=== PATIENT | male | born 1940 | race Caucasian/White ===

== ENCOUNTER 2017-01-07 21:42 | Emergency (ER) | payer MEDICARE, OTHER ==
[2017-01-07 21:55] VITALS: BP 133/76
--- NOTE | 2017-01-07 21:57 | EDM.PDOC ---
ED HPI ENT - General Chief Complaint: ENT Problem Stated Complaint: BLOODY NOSE,CAUTERIZED ON WED Time Seen by Provider: 01/07/17 21:55 Source of Information: Reports: Patient History Limitations: Reports: No limitations - History of Present Illness INITIAL COMMENTS - FREE TEXT/NARRATIVE: recurrent nose bleed. had cautery 2 days ago, was Ok till today bleeding on off then [employer] got worse. - Related Data Allergies/ADRs: Allergies Allergy/AdvReac Type Severity Reaction Status Date / Time copper Allergy Cannot Verified 01/07/17 21:53 Remember Iodinated Contrast Media - Allergy Itching Verified 01/07/17 21:53 Oral and [Iodinated Contrast Media - IV Dye] Home Meds: Home Meds Metoprolol Tartrate 12.5 mg PO BID 12/11/14 [History] amLODIPine [Norvasc] 5 mg PO DAILY 12/11/14 [History] Acetaminophen [Tylenol Extra Strength] 500 mg PO BID PRN 07/22/16 [History] Acetaminophen/Diphenhydramine [Tylenol Pm Ex-Strength Caplet] 1 tab PO DAILY PRN 07/22/16 [History] Aspirin 81 mg PO BRK 07/22/16 [History] Clopidogrel [Plavix] 75 mg PO DAILY 07/22/16 [History] Famotidine [Pepcid] 20 mg PO DAILY PRN 07/22/16 [History] Naproxen Sodium [Aleve] 220 mg PO DAILY PRN 07/22/16 [History] Nitroglycerin [Nitrostat] 0.4 mg SL Q5M PRN 07/22/16 [History] Simvastatin [Zocor] 20 mg PO BEDTIME 07/22/16 [History] Pantoprazole [ProTONIX] 40 mg PO ACBREAKFAST #30 tab.cr 07/23/16 [Rx] Past Medical History HEENT History: Reports: Hard of hearing, Impaired vision Cardiovascular History: Reports: CAD, High cholesterol, Hypertension Gastrointestinal History: Reports: Irritable bowel syndrome, Other (see below) Other Gastrointestinal History: lactose intolerance; anal fistula Genitourinary History: Reports: BPH Musculoskeletal History: Reports: None Neurological History: Reports: None Psychiatric History: Reports: Anxiety Endocrine/Metabolic History: Reports: Other (see below) Other Endocrine/Metabolic History: hyperglycemia Hematologic History: Reports: Anemia Immunologic History: Reports: None Oncologic (Cancer) History: Reports: None Dermatologic History: Reports: Eczema - Infectious Disease History Infectious Disease History: Reports: Chicken pox - Past Surgical History HEENT Surgical History: Reports: Adenoidectomy, Tonsillectomy Cardiovascular Surgical History: Reports: Other (see below) Other Cardiovascular Surgeries/Procedures: Cardiac cath 2013Left Circumflex stent placed 07/20/16 GI Surgical History: Reports: Colonoscopy, EGD, Other (see below) Other GI Surgeries/Procedures: Closure of Anal Fistula Endocrine Surgical History: Reports: None Social & Family History - Family History Family Medical History: Noncontributory Cardiac: Reports: CAD - Tobacco Use Smoking Status *Q: Never Smoker Used Tobacco, but Quit: Yes Month Tobacco Last Used: 09/22/1983 Second Hand Smoke Exposure: No - Caffeine Use Caffeine Use: Reports: Coffee - Alcohol Use Days Per Week of Alcohol Use: 7 Number of Drinks Per Day: 1 Total Drinks Per Week: 7 - Recreational Drug Use Recreational Drug Use: No ED ROS ENT - Review of Systems Review Of Systems: ROS reveals no pertinent complaints other than HPI. ED EXAM, ENT - Physical Exam Exam: See Below Exam Limited By: No limitations General Appearance: alert, WD/WN, mild distress, other (distraught) Ears: hearing grossly normal Nose: active bleeding, other (right hasslebach) Mouth/Throat: Normal inspection Head: atraumatic Neck: non-tender, full range of motion Respiratory/Chest: no respiratory distress Cardiovascular: regular rate, rhythm GI/Abdominal: soft, non tender Neurological: alert, oriented, normal cognition, normal gait, no motor/sensory deficits Psychiatric: anxious Skin: Warm, Dry Lymphatic: no adenopathy Course - Vital Signs Last Recorded V/S: Last Vital Signs Temp 36.7 C 01/07/17 21:48 Pulse 74 01/07/17 21:55 Resp 18 01/07/17 21:55 BP 133/76 01/07/17 21:55 Pulse Ox 95 01/07/17 21:55 - Orders/Labs/Meds Labs: Laboratory Tests 01/07/17 01/07/17 01/07/17 Range/Units 22:10 22:10 22:10 WBC 7.7 (5.0-10.0) 10^3/uL RBC 4.84 (4.6-6.2) 10^6/uL Hgb 14.9 (14.0-18.0) g/dL Hct 43.4 (40.0-54.0) % MCV 89.7 (80-100) fL MCH 30.8 (27.0-34.0) pg MCHC 34.3 (33.0-35.0) g/dL Plt Count 204 (150-450) 10^3/uL Neut % (Auto) 72.2 (42.2-75.2) % Lymph % (Auto) 13.1 L (20.5-50.1) % [place] % (Auto) 11.8 H (2-8) % Eos % (Auto) 2.1 (1.0-3.0) % Baso % (Auto) 0.8 (0.0-1.0) % PT 10.4 (9.0-12.0) SEC INR 1.0 (0.9-1.2) APTT 26.0 (22.0-34.0) SEC Sodium 140 (135-145) mmol/L Potassium 3.4 L (3.6-5.0) mmol/L Chloride 106 (101-111) mmol/L Carbon Dioxide 24.0 (21.0-31.0) mmol/L Anion Gap 13.4 BUN 18 (7-18) mg/dL Creatinine 0.8 (0.6-1.3) mg/dL Est Cr Clr Drug Dosing 81.01 mL/min Estimated GFR (MDRD) > 60 BUN/Creatinine Ratio 22.50 Glucose 119 H (74-105) mg/dL Calcium 9.1 (8.4-10.2) mg/dl Total Bilirubin 0.8 (0.2-1.0) mg/dL AST 29 (10-42) IU/L ALT 23 (10-60) IU/L Alkaline Phosphatase 91 (42-121) IU/L Total Protein 7.1 (6.7-8.2) g/dl Albumin 4.1 (3.2-5.5) g/dl Globulin 3.0 Albumin/Globulin Ratio 1.37 - Re-Assessments/Exams Free Text/Narrative Re-Assessment/Exam: 01/07/17 22:47 re-exam: repacking done, now bilateral 01/08/17 00:14 further eval' Pt states can still feel blood trickling down back of throat. orophayrnx unable to viz blood. case discussed with Dr Talley @ [facility] who kindly accepted Pt. Departure - Departure Time of Disposition: 00:17 Disposition: DC/Tfer to Acute Hospital 02 Condition: good Clinical Impression: Epistaxis Forms: Interfacility Transfer EMTALA
[2017-01-07 22:34] LABS: CHLORIDE,CL 106 mmol/L (101-111); SODIUM,NA 140 mmol/L (135-145)
== END 2017-01-08 00:45 ==
LOC: DL.ED 21:42
DX: R04.0 Epistaxis (principal); I25.10 Atherosclerotic heart disease of native coronary artery without angina pectoris; E78.00 Pure hypercholesterolemia, unspecified; I10 Essential (primary) hypertension; F41.9 Anxiety disorder, unspecified; Z79.82 Long term (current) use of aspirin; Z79.899 Other long term (current) drug therapy; Z86.2 Personal history of diseases of the blood and blood-forming organs and certain disorders involving the immune mechanism; Z98.890 Other specified postprocedural states; Z91.041 Radiographic dye allergy status
CPT/HCPCS: 36415; 80053; 85025; 85610; 85730; 99283; 99284

== ENCOUNTER 2017-08-09 06:19 | Day surgery (SDC) | payer MEDICARE, OTHER ==
[~2017-08-09 06:19] MED LIST: Dextrose 5%-0.45% NaCl 1,000 ML IV SCH; Midazolam 1 MG/ML 2 ML SDV ONE; Sodium Chloride 0.9% 10 ML Syringe FLUSH PRN; fentaNYL 100 MCG/2 ML SDV ONE
[2017-08-09] MEDS ORDERED: Midazolam 1 MG/ML 2 ML SDV IV ONE ×7 (06:20→07:39)
[2017-08-09] MEDS ORDERED: fentaNYL 100 MCG/2 ML SDV IV ONE ×4 (06:20→07:41)
[2017-08-09 12:31] VITALS: BP 121/52
--- NOTE | 2017-08-09 12:39 | OR ---
DATE: 08/09/2017 PROCEDURE: Total colonoscopy and multiple pinch biopsies. INSTRUMENT USED: CF-H180AL Olympus video colonoscope. PREMEDICATIONS: Fentanyl 125 mcg intravenous, Versed 4 mg intravenous. Nasal O2 cannula. The procedure was done under pulse oximetry, BP recording, and cardiac nurse specialist. INDICATION: The patient with chronic diarrhea, unexplained, and not responsive to medical measures. Colonoscopic examination is done for detection of any polypoid lesions and removal, biopsies to be obtained for microscopic colitis, endoscopic hemostasis therapy if needed. Initial rectal exam was unremarkable. Rigid anoscopy showed small internal hemorrhoids without bleeding from them. DESCRIPTION OF PROCEDURE: The colonoscope was passed with ease. Numerous scattered diverticula were noted in the distal left colon along with deformity. The scope was passed with ease up to the ileocecal area, photographs were taken of the normal-appearing cecum, identified by landmarks of appendiceal orifice and double-bulged ileocecal folds. No bleeding was noted from any of the visualized areas at the commencement of the examination. No stricture. No vascular ectasia. No large isolated ulcerations seen. No evidence of diffuse inflammatory bowel disease in the form of friability, contact bleeding, or ulcerations. No polyp or tumor mass identified. Probing the proximal sides of folds and flexures, using adequate distention and clearing up the stool material, withdrawal of the scope was made. Multiple pinch biopsies were taken from the normal-appearing mucosa of the mid transverse colon, mid descending colon, and rectosigmoid, and sent for any histopathologic evidence of microscopic colitis. No bleeding was noted from any of the visualized areas at the completion of examination. IMPRESSION: 1. Internal hemorrhoids. 2. Diverticulosis. The patient tolerated the procedure well. [facility] /[id number]
== END 2017-08-09 10:05 | disposition home or self-care (01) ==
LOC: DL.ENDO 06:19
PROVIDERS: ATTEND Internal Medicine Gastroenterology
DX: K57.30 Diverticulosis of large intestine without perforation or abscess without bleeding (principal); K64.8 Other hemorrhoids; I25.10 Atherosclerotic heart disease of native coronary artery without angina pectoris; E66.9 Obesity, unspecified; I10 Essential (primary) hypertension; E78.00 Pure hypercholesterolemia, unspecified; Z91.041 Radiographic dye allergy status; Z91.048 Other nonmedicinal substance allergy status
CPT/HCPCS: 45380; J2250; J3010; J7042; 88305

== ENCOUNTER 2020-02-21 21:54 | Emergency (ER) | payer MEDICARE ==
[2020-02-21 23:08] VITALS: BP 126/71; PULSE 73
[2020-02-21] MEDS ORDERED: Doxycycline 100 MG Cap PO ONE (23:23)
--- NOTE | 2020-02-21 23:28 | EDM.PDOC ---
ED HPI GENERAL MEDICAL PROBLEM - General Chief Complaint: Bite:Animal, Insect Stated Complaint: imbedded woodtick Time Seen by Provider: 02/21/20 23:10 Source of Information: Reports: Patient, Other History Limitations: Reports: No Limitations - History of Present Illness INITIAL COMMENTS - FREE TEXT/NARRATIVE: think wood tike bite to left axilla noticed red swollen area tonight, picked something off earlier but not sure if woodtick or what, though saw something that had legs. no fever or chills but area has small ring. - Related Data Allergies Allergy/AdvReac Type Severity Reaction Status Date / Time copper Allergy Cannot Verified 02/21/20 23:08 Remember Iodinated Contrast Media Allergy Itching Verified 02/21/20 23:08 [Iodinated Contrast Media - IV Dye] Home Meds: Home Meds Metoprolol Tartrate 12.5 mg PO BID 12/11/14 [History] amLODIPine [Norvasc] 5 mg PO DAILY 12/11/14 [History] Aspirin 81 mg PO BRK 07/22/16 [History] Nitroglycerin [Nitrostat] 0.4 mg SL Q5M PRN 07/22/16 [History] Omeprazole 20 mg PO DAILY 08/08/17 [History] Rosuvastatin [Crestor] 10 mg PO BEDTIME 08/08/17 [History] Acetaminophen 500 mg PO Q6HR PRN 09/18/18 [History] Past Medical History HEENT History: Reports: Hard of Hearing, Impaired Vision Cardiovascular History: Reports: CAD, High Cholesterol, Hypertension Gastrointestinal History: Reports: GERD, Hemorrhoids, Irritable Bowel Syndrome, Other (See Below) Other Gastrointestinal History: lactose intolerance; anal fistula Genitourinary History: Reports: BPH Musculoskeletal History: Reports: None Neurological History: Reports: None Psychiatric History: Reports: Anxiety Endocrine/Metabolic History: Reports: Other (See Below) Other Endocrine/Metabolic History: hyperglycemia Hematologic History: Reports: Anemia Immunologic History: Reports: None Oncologic (Cancer) History: Reports: None Dermatologic History: Reports: Eczema - Infectious Disease History Infectious Disease History: Reports: Chicken Pox, Measles, Mumps - Past Surgical History Head Surgeries/Procedures: Reports: None HEENT Surgical History: Reports: Adenoidectomy, Tonsillectomy Other HEENT Surgeries/Procedures: joint problem in neck Cardiovascular Surgical History: Reports: Coronary Artery Stent, Other (See Below) Other Cardiovascular Surgeries/Procedures: Cardiac cath 2013Left Circumflex stent placed 07/20/16 GI Surgical History: Reports: Colonoscopy, EGD, Other (See Below) Other GI Surgeries/Procedures: Closure of Anal Fistula Endocrine Surgical History: Reports: None Social & Family History - Family History Family Medical History: Noncontributory Cardiac: Reports: CAD - Tobacco Use Smoking Status *Q: Never Smoker Second Hand Smoke Exposure: No - Caffeine Use Caffeine Use: Reports: None Caffeine Use Comment: 24oz - Recreational Drug Use Recreational Drug Use: No ED ROS GENERAL - Review of Systems Review Of Systems: Comprehensive ROS is negative, except as noted in HPI. ED EXAM, ANIMAL BITE - Physical Exam Exam: See Below Exam Limited By: No Limitations General Appearance: Alert, No Apparent Distress Eye Exam: Bilateral Eye: EOMI Ears: Normal External Exam Throat/Mouth: Normal Inspection Head: Atraumatic, Normocephalic Neck: Normal Inspection Respiratory/Chest: No Respiratory Distress, Lungs Clear, Normal Breath Sounds, Chest Non-Tender Cardiovascular: Normal Peripheral Pulses, Regular Rate, Rhythm Extremities: Normal Inspection Neurological: Alert, Oriented Psychiatric: Normal Affect Skin Exam: Other (left mid axilla 4mm black crusted lesion with 2mm surrounding red border, mild tenderness, no surrounding lymphadenopathy) Course - Vital Signs Last Recorded V/S: Last Vital Signs Temp 98.6 F 02/21/20 23:05 Pulse 73 02/21/20 23:05 Resp 18 02/21/20 23:05 BP 126/71 02/21/20 23:05 Pulse Ox 100 02/21/20 23:05 - Orders/Labs/Meds Meds: Medications Discontinued Medications Generic Name Dose Route Start Last Admin Trade Name Adrianne PRN Reason Stop Dose Admin Doxycycline Hyclate 100 mg 02/21/20 23:23 02/21/20 23:40 Vibramycin PO 02/21/20 23:24 100 mg ONETIME ONE Administration Departure - Departure Time of Disposition: 23:25 Disposition: Home, Self-Care 01 Condition: Good Clinical Impression: Tick bite Qualifiers: Encounter type: initial encounter Qualified Code(s): W57.XXXA - Bitten or stung by nonvenomous insect and other nonvenomous arthropods, initial encounter - Discharge Information *PRESCRIPTION DRUG MONITORING PROGRAM REVIEWED*: No *COPY OF PRESCRIPTION DRUG MONITORING REPORT IN PATIENT GUA[place]KITO: No Instructions: Tick Bite Information, Adult Forms: ED Department Discharge Additional Instructions: warm pack area 2-3 times daily for 15 minutes tylenol 650mg every 4 hours as needed for discomfort doxycycline 100mg one twice daily for 10 days clinic follow up if not improving Sepsis Event Note (ED) - Evaluation Sepsis Screening Result: No Definite Risk
== END 2020-02-21 23:41 | disposition home or self-care (01) ==
LOC: DL.ED 21:54
DX: S40.862A Insect bite (nonvenomous) of left upper arm, initial encounter (principal); I25.10 Atherosclerotic heart disease of native coronary artery without angina pectoris; E78.00 Pure hypercholesterolemia, unspecified; I10 Essential (primary) hypertension; K21.9 Gastro-esophageal reflux disease without esophagitis; Z91.09 Other allergy status, other than to drugs and biological substances; Z91.041 Radiographic dye allergy status; Z79.82 Long term (current) use of aspirin; Z79.899 Other long term (current) drug therapy; W57.XXXA Bitten or stung by nonvenomous insect and other nonvenomous arthropods, initial encounter
CPT/HCPCS: 99281; A9270; 99283

== ENCOUNTER 2022-04-17 13:37 | Emergency (ER) | payer MEDICARE | END 2022-04-17 14:06 | disposition left against medical advice (07) | LOC: DL.ED 13:37 | DX: Z53.21 Procedure and treatment not carried out due to patient leaving prior to being seen by health care provider (principal) ==

== ENCOUNTER 2022-08-29 10:59 | Emergency (ER) | payer MEDICARE, OTHER ==
[2022-08-29 12:31] VITALS: BP 133/81; PULSE 94
[2022-08-29 12:40] LABS: ANION GAP 14.9 mEq/L (7-13)
[2022-08-29 13:03] LABS: CORONAVIRUS COVID-19 NAA NEGATIVE (NEGATIVE); RESPIRATORY SYNCYTIAL VIR NAA POSITIVE (NEGATIVE)
== END 2022-08-29 14:24 | disposition home or self-care (01) ==
LOC: DL.ED 10:59
DX: R05.9 Cough, unspecified (principal); B97.4 Respiratory syncytial virus as the cause of diseases classified elsewhere; I25.10 Atherosclerotic heart disease of native coronary artery without angina pectoris; E78.00 Pure hypercholesterolemia, unspecified; I10 Essential (primary) hypertension; Z91.041 Radiographic dye allergy status; Z91.048 Other nonmedicinal substance allergy status; Z79.899 Other long term (current) drug therapy; Z79.82 Long term (current) use of aspirin; Z20.822 Contact with and (suspected) exposure to COVID-19
CPT/HCPCS: 0241U; 36415; 71045; 80053; 83605; 85025; 87081; 87430; 99284

== ENCOUNTER 2024-02-02 12:26 | Emergency (ER) | payer MEDICARE, OTHER ==
[2024-02-02 12:48] LABS: BASOPHILS PERCENT AUTO 0.7 % (0.0-1.0); EOSINOPHILS PERCENT AUTO 3.7 % (1.0-3.0); HEMATOCRIT 45.5 % (40.0-54.0); HEMOGLOBIN 15.2 g/dL (14.0-18.0); LYMPHOCYTES PERCENT AUTO 12.6 % (20.5-50.1); MEAN CORPUSCULAR HEMOGLOBIN 31.5 pg (27.0-34.0); MEAN CORPUSCULAR HGB CONC 33.4 g/dL (33.0-35.0); MEAN CORPUSCULAR VOLUME 94.2 fL (80-100); PLATELET COUNT,PLT 211 10^3/uL (150-450); RED BLOOD CELL COUNT 4.83 10^6/uL (4.6-6.2); WHITE BLOOD CELL COUNT,WBC 6.7 10^3/uL (5.0-10.0)
[2024-02-02 13:03] VITALS: BP 140/80; PULSE 66
[2024-02-02] MEDS: Aspirin 81 MG Tab.Chew PO ONE (13:04)
[2024-02-02] MEDS: Sodium Chloride 0.9% 10 ML Syringe FLUSH PRN (13:04)
[2024-02-02 13:06] LABS: B-TYPE NATRIURETIC PEPTIDE,BNP 56 pg/ml (0-100)
[2024-02-02 13:11] LABS: A/G RATIO 1.1; ALANINE AMINOTRANSFERASE,ALT 28 U/L (16-63); ALBUMIN 3.6 g/dL (3.4-5.0); ALKALINE PHOSPHATASE 120 U/L (46-116); ANION GAP 12.9 mEq/L (7-13); ASPARTATE AMNIOTRANSFERASE,AST 19 U/L (15-37); BILIRUBIN TOTAL 0.7 mg/dL (0.2-1.0); BLOOD UREA NITROGEN,BUN 16 mg/dL (7-18); BUN/CREATININE RATIO 14.4 (No establ ref range); C-REACTIVE PROTEIN < 0.50 ng/dL (<=0.50); CALCIUM 8.6 mg/dL (8.5-10.1); CARBON DIOXIDE,CO2 26 mmol/L (21-32); CHLORIDE,CL 108 mmol/L (98-107); CREATININE 1.11 mg/dL (0.70-1.30); EST CRCL DRUG DOSING (CG) 51.31 mL/min; ESTIMATED GFR 66 mL/min (>=60); GLUCOSE RANDOM 102 mg/dL (70-99); POTASSIUM,K 3.9 mmol/L (3.5-5.1); SODIUM,NA 143 mmol/L (136-145)
== END 2024-02-02 15:23 | disposition home or self-care (01) ==
LOC: DL.ED 12:26
DX: R07.89 Other chest pain (principal); I10 Essential (primary) hypertension; E78.00 Pure hypercholesterolemia, unspecified; I25.10 Atherosclerotic heart disease of native coronary artery without angina pectoris; K21.9 Gastro-esophageal reflux disease without esophagitis; Z86.16 Personal history of COVID-19; Z95.5 Presence of coronary angioplasty implant and graft; Z79.899 Other long term (current) drug therapy; Z91.041 Radiographic dye allergy status; Z91.048 Other nonmedicinal substance allergy status
CPT/HCPCS: 36415; 71046; 80053; 83735; 83880; 84484; 85025; 85379; 85610; 86140; 93005; 99285; A9270; J3490

== ENCOUNTER 2024-08-31 11:08 | Emergency (ER) | payer MEDICARE ==
[2024-08-31] MEDS ORDERED: Sodium Chloride 0.9% 10 ML Syringe FLUSH PRN (12:05)
[2024-08-31 12:18] LABS: BASOPHILS PERCENT AUTO 0.4 % (0.0-1.0); EOSINOPHILS PERCENT AUTO 1.2 % (1.0-3.0); HEMATOCRIT 51.9 % (40.0-54.0); HEMOGLOBIN 17.5 g/dL (14.0-18.0); LYMPHOCYTES PERCENT AUTO 8.1 % (20.5-50.1); MEAN CORPUSCULAR HEMOGLOBIN 31.3 pg (27.0-34.0); MEAN CORPUSCULAR HGB CONC 33.7 g/dL (33.0-35.0); MEAN CORPUSCULAR VOLUME 92.8 fL (80-100); MONOCYTES PERCENT AUTO 11.1 % (2-8); NEUTROPHILS PERCENT AUTO 79.2 % (42.2-75.2); PLATELET COUNT,PLT 196 10^3/uL (150-450); RED BLOOD CELL COUNT 5.59 10^6/uL (4.6-6.2); WHITE BLOOD CELL COUNT,WBC 9.9 10^3/uL (5.0-10.0)
[2024-08-31] MEDS: Sodium Chloride 0.9% 1,000 ML IV ONE (12:22)
[2024-08-31 12:37] LABS: PROTHROMBIN TIME 10.5 SEC (9.0-12.0); PTT,PARTIAL THROMBOPLSTIN TIME 25.5 SEC (22.0-34.0)
[2024-08-31 12:40] LABS: A/G RATIO 0.9; ALBUMIN 3.7 g/dL (3.4-5.0); BUN/CREATININE RATIO 11.2 (No establ ref range); CREATININE 1.34 mg/dL (0.70-1.30); EST CRCL DRUG DOSING (CG) 41.12 mL/min; MAGNESIUM 2.1 mg/dL (1.8-2.4); PROTEIN TOTAL,TP 7.6 g/dL (6.4-8.2)
[2024-08-31 12:43] LABS: LACTIC ACID 1.3 mmol/L (0.4-2.0)
[2024-08-31] MEDS: methylPREDNISolone Sodium Succinate 40 MG/1 ML SDV IM ONE (13:03)
[2024-08-31] MEDS: diphenhydrAMINE 50 MG/ML SDV IVPUSH ONE (13:03)
[2024-08-31] MEDS: Loperamide 2 MG Cap PO ONE (13:03)
[2024-08-31] MEDS: Iopamidol 612 MG/ML 100 ML Bottle IVPUSH ONE (13:04)
[2024-08-31] MEDS: Sodium Chloride 0.9% 500 ML IV SCH (14:18)
[2024-08-31 15:03] LABS: APPEARANCE,URINE CLEAR (CLEAR); BILIRUBIN,URINE NEGATIVE (NEGATIVE); COLOR,URINE YELLOW (YELLOW); GLUCOSE,URINE NEGATIVE (NEGATIVE); KETONES,URINE 40 (NEGATIVE); LEUKOCYTE ESTERASE,URINE NEGATIVE (NEGATIVE); NITRITE,URINE NEGATIVE (NEGATIVE); OCCULT BLOOD,URINE TRACE-INTACT (NEGATIVE); PROTEIN,URINE NEGATIVE (NEGATIVE); UROBILINOGEN,URINE 0.2 mg/dL (0.2-1.0)
[2024-08-31 15:21] LABS: AMORPHOUS SEDIMENT,URINE RARE /HPF (NOT SEEN); BACTERIA,URINE RARE /HPF (0-FEW/HPF); EPITHELIAL CELLS,URINE FEW /HPF (NOT SEEN); MUCUS,URINE FEW /LPF (NOT SEEN); RBC,URINE 0-5 /HPF (0-5); WBC,URINE 0-5 /HPF (0-5/HPF)
[2024-08-31 15:30] VITALS: BP 137/89; PULSE 75
== END 2024-08-31 15:58 | disposition home or self-care (01) ==
LOC: DL.ED 11:08
DX: R19.7 Diarrhea, unspecified (principal); E86.0 Dehydration; I10 Essential (primary) hypertension; E78.00 Pure hypercholesterolemia, unspecified; I25.10 Atherosclerotic heart disease of native coronary artery without angina pectoris; K21.9 Gastro-esophageal reflux disease without esophagitis; Z79.899 Other long term (current) drug therapy; Z91.048 Other nonmedicinal substance allergy status
CPT/HCPCS: 36415; 74177; 80053; 81001; 83605; 83690; 83735; 85025; 85610; 85730; 87040; 87045; 87046; 87328; 87329; 87493; 87899; 96361; 96372; 96374; 99283; 99284-25; A9270-GY; J1200; J2919; J7030; J7040; Q9967

== ENCOUNTER 2025-03-02 14:43 | Emergency (ER) | payer MEDICARE | END 2025-03-02 15:06 | disposition home or self-care (01) | LOC: DL.ED 14:43 | DX: Z48.00 Encounter for change or removal of nonsurgical wound dressing (principal) | CPT/HCPCS: 99281 ==